=== PATIENT | male | born 1940 | race Caucasian/White ===

== ENCOUNTER → 2016-07-25 | Outpatient (CLI) | payer OTHER ==
[~2016-07-25] MED LIST: ASPIR 8181 MG PO; COREG3.125 MG PO; COREG6.25 MG PO; COUMADIN 5 MG TA5 M1 PO; ELIQUIS5 MG PO; ENOXAPARIN60 MG/0.1 SUBQ; FUROSEMIDE 40 M40 M1 PO; LIPITOR10 MG PO; LISINOPRIL2.5 MG PO; MIRALAX17 GM PO; PACERONE 200 M200 M1 PO; PLAVIX 75 MG TA75 M1 PO; PROTONIX40 M1 PO; VITAMIN B-12100 MCG PO; XARELTO20 MG PO
== END ==
LOC: SPEC 12:15
DX: I73.9 Peripheral vascular disease, unspecified (principal); M79.81 Nontraumatic hematoma of soft tissue

== ENCOUNTER → 2016-09-23 | Outpatient (CLI) | payer OTHER | END | disposition home or self-care (01) | LOC: SPEC 08:22 | DX: K55.9 Vascular disorder of intestine, unspecified (principal); Z90.49 Acquired absence of other specified parts of digestive tract; Z98.890 Other specified postprocedural states; I73.9 Peripheral vascular disease, unspecified; I50.9 Heart failure, unspecified; D18.09 Hemangioma of other sites ==

== ENCOUNTER 2016-11-12 02:49 | Inpatient (IN) | payer OTHER ==
[~2016-11-12] VITALS: Ht 170.2 cm; Wt 68.0 kg
--- NOTE | ~2016-11-12 | HC ---
[facility] [place] [address] CONSULTATION Name: ALLAN DURHAM Room #: 311-P ADM IN M.R.#: [id number] Admission: 11/12/16 Attend Phys: Ranjan Byrnes MD Discharge: Date of : 44 Report #: [id number] THIS REPORT FOR: //name// CC: Ranjan Byrnes DATE OF SERVICE: 11/12/2016 REASON FOR CONSULTATION: 1. Shortness of breath, question etiology. 2. Probable chronic obstructive pulmonary disease. 3. Probable acute on chronic congestive heart failure. 4. Abdominal pain with mesenteric artery stenting. 5. Anemia. 6. Debilitation. PLAN: DuoNeb aerosol therapy. Agree with diuresis. Await abdominal CT. May check CT chest the same time, echocardiogram pending. Discussed with the family at bedside. HISTORY OF PRESENT ILLNESS: A 76-year-old transferred for possible GI bleed and increasing shortness breath. The patient relates ever since he had the transfusion last week, he has had progressive shortness breath and difficulty walking. He also has had a recent mesenteric artery stent. He denies any hemoptysis or hematemesis. Positive cough. No fever, chills or sweats. PAST MEDICAL HISTORY: ALLERGIES: No known. MEDICATIONS: In the past included Protonix, atorvastatin, aspirin, lisinopril, Lasix, amiodarone, Coreg, warfarin, Plavix. SOCIAL HISTORY: Positive for tobacco, quit 6 months ago; positive ETOH; no drugs of abuse. REVIEW OF SYSTEMS: Positive for COPD and peripheral arterial disease, hypertension, CHF, positive for fatigue. No definite snoring or witnessed apnea. Positive shortness breath. No hemoptysis, hematemesis, hematuria. No dysuria. No recent TIA. PHYSICAL EXAMINATION: VITAL SIGNS: Temperature 98.4, pulse 70, respirations 20, BP 96/68. EYES: Negative icterus. NECK: Negative JVD. LUNGS: Showed a few crackles at bases, no wheeze or rhonchi. HEART: Regular. [facility] [address] [place] [address] CONSULTATION Name: HERMINIOALLAN LARISA Room #: 311-[facility] IN .R.#: [id number] Admission: 11/12/16 Attend Phys: Ranjan Byrnes MD Discharge: Date of : 42 Report #: [id number] ABDOMEN: Bowel sounds present, soft, nontender. EXTREMITIES: Showed no cyanosis or edema. NEUROLOGIC: He is alert and oriented. LABORATORY DATA: CT abdomen and pelvis showed right greater than left pleural effusion, SMA stent, atelectasis. Echo showed severe LV dysfunction, moderate to severe mitral regurg, pulmonary artery pressure of 50. We will follow closely with you. By: 1544 1851 Macy Gao MD /nt
--- NOTE | ~2016-11-12 | 2DMMODE ---
[facility] [address] [place] [address] 2 D/M-MODE ECHOCARDIOGRAM Name: HERMINIOALLAN PERES Room #: 311-P ADM IN M.R.#: [id number] Admission: 11/12/16 Attend Phys: Ranjan Byrnes MD Discharge: Date of : 44 Date of Service: 11/12/16 1342 Report #: [id number] THIS REPORT FOR: //name// APPROVED REPORT Study performed: 11/12/2016 10:00:25 EXAM: Comprehensive 2D, Doppler, and color-flow Echocardiogram Patient Location: Bedside Room #: 311 Status: on-call Other Information Study Quality: Adequate/low parasternal window Indications Congestive Heart Failure Dyspnea Hx: CHF, COPD, PVD 2D Dimensions RVDd: 39.79 mm LVEF(%): 24.86 (>50%) IVSd: 9.30 (7-11mm) LVOT Diam: 21.17 (18-24mm) LVDd: 59.70 mm PWd: 9.79 (7-11mm) LVDs: 52.73 (25-40mm) Aortic Root: 36.12 mm Trevino's LVEF: 24.86 % Volumes Left Atrial Volume (Systole) Single Plane 4CH: 81.96 mL Single Plane 2CH: 90.85 mL LA ESV Index: 54.00 mL/m2 Aortic Valve AoV Peak Nathaniel.: 1.07 m/s AO Peak Gr.: 4.54 mmHg LVOT Max P.05 mmHg LVOT Max V: 0.87 m/s AUDRA Vmax: 2.88 cm2 Mitral Valve MV Decel. Time: 121.22 ms MV E Max Nathaniel.: 1.12 m/s [facility] [address] [place] [address] 2 D/M-MODE ECHOCARDIOGRAM Name: ALLAN DURHAM Room #: 311-P [facility] IN [facility].#: [id number] Admission: 11/12/16 Attend Phys: Ranjan Byrnes MD Discharge: Date of : 44 Date of Service: 11/12/16 1342 Report #: [id number] Pulmonary Valve PV Peak Nathaniel.: 0.60 m/s PV Peak Gr.: 1.43 mmHg Tricuspid Valve TR Peak Nathaniel.: 3.14 m/s RAP Estimate: 10.00 mmHg TR Peak Gr.: 39.38 mmHg PA Pressure: 49.00 mmHg Left Ventricle Left ventricle is dilated. There is normal left ventricular wall thickness. Left ventricular systolic function is severely decreased. LVEF 25%. This study is not technically sufficient to allow evaluation of the LV diastolic function Right Ventricle The right ventricle is normal size. Right ventricle is hypokinetic. Atria Left atrium is severely dilated. Right atrium is moderately dilated. Aortic Valve aortic valve is mildly sclerotic. Trace aortic regurgitation. There is no aortic valvular stenosis. Mitral Valve Mitral valve leaflets are thickened. Moderately severe to severe mitral regurgitation No evidence of mitral valve stenosis. Tricuspid Valve The tricuspid valve is normal in structure. There is mild tricuspid regurgitation. The right atrial pressure is estimated at 10 mmHg. There is moderate pulmonary hypertension with an estimated PAP of 50mmHg. Pulmonic Valve Pulmonic valve is not well visualized. Trace pulmonic regurgitation. Great Vessels The aortic root is normal in size. Ascending aorta is not well visualized. IVC is dilated and collapses <50% with inspiration. Pericardium [facility] [address] [place] [address] 2 D/M-MODE ECHOCARDIOGRAM Name: ALLAN DURHAM Room #: 311-P [facility] IN .R.#: [id number] Admission: 11/12/16 Attend Phys: Ranjan Byrnes MD Discharge: Date of : 44 Date of Service: 11/12/16 1342 Report #: [id number] There is no pericardial effusion. Left and right pleural effusions noted. <Conclusion> Left ventricular systolic function is severely decreased. LVEF 25%. Both atria are dilated. Aortic valve is mildly sclerotic, trileaflet. No aortic valvular stenosis or insuffiency. Mitral valve leaflets are thickened. Moderately severe to severe mitral regurgitation Pulmonary artery pressure of 50mmHg There is no pericardial effusion. <ELECTRONICALLY SIGNED> By: Ralph Shultz MD, [facility] 11/12/161341 41 41 Ralph Shultz MD, FAC /INF
--- NOTE | ~2016-11-12 | HC ---
[facility] [place] [address] CONSULTATION Name: ALLAN DURHAM Room #: 311-P [facility] IN M.R.#: [id number] Admission: 11/12/16 Attend Phys: Xavier Nobles DO Discharge: 11/14/16 Date of : 42 Report #: [id number] THIS REPORT FOR: //name// CC: Ranjan Byrnes REASON FOR CONSULTATION: Shortness of breath. HISTORY OF ILLNESS: The patient is a 76-year-old gentleman with a history of diffuse vascular disease, had prior mesenteric stenting. His history includes a cardiomyopathy. He reports being life-flighted 3 times to [place] for congestive heart failure. He has been told of having a very weakened heart muscle. He also reports that as recently as September of this year, he underwent Lexiscan stress study and echocardiogram, both of which were favorable. Those results have been requested. He has been maintained on warfarin, Plavix and aspirin ever since a repeat mesenteric stenting procedure done in 06/2016. He has had tolerated over recurrent bleeding and has received 2-3 blood since as recently as Monday of this past week. Following this transfusion he did generally feel better, although he has had persistent exertional breathlessness and orthopnea. Two weeks ago, had an episode of bright red blood per rectum. He denies chest heaviness or pressure. No history of near syncope or syncope. ALLERGIES: No known drug allergies. MEDICATIONS: Include warfarin 2.5 mg every day except Monday, Monday, Monday, Plavix 75 mg daily, Protonix 40 mg daily, aspirin 81 mg daily, amiodarone 200 mg daily, carvedilol 3.125 mg twice daily, Lasix 40 mg daily, had been on 40 mg twice daily, dose was recentlychanged, atorvastatin 10 mg daily, lisinopril 5 mg daily. PAST MEDICAL HISTORY: Medical records have been reviewed and include a history of appendectomy, left iliac artery stenosis, right iliac artery occlusion with bypass, cardiomyopathy with congestive heart failure, celiac and mesenteric artery stenting. SOCIAL HISTORY: He is a former, significant smoker. FAMILY HISTORY: Unremarkable for premature coronary disease. REVIEW OF SYSTEMS: All systems negative except as that noted above. PHYSICAL EXAMINATION: GENERAL: Reveals a pleasant gentleman in no distress. VITAL SIGNS: Blood pressure is 100/68, heart rate is 70 and regular. He is afebrile. HEENT: There are neither xanthelasma, subcutaneous xanthomata, oral mucosal or digital cyanosis or kyphoscoliosis present. CHEST: Clear to auscultation and percussion. [facility] [address] [place] [address] CONSULTATION Name: ALLAN DURHAM Room #: 311-P [facility] IN M.R.#: [id number] Admission: 11/12/16 Attend Phys: Xavier Nobles DO Discharge: 11/14/16 Date of : 42 Report #: [id number] CARDIOVASCULAR: Regular rate and rhythm with normal S1, S2. Jugular venous pressure is elevated. ABDOMEN: Soft and nontender. EXTREMITIES: Without cyanosis, clubbing or edema. Radial pulses are 2+. NEUROLOGIC: He is alert with a nonfocal exam. LABORATORY DATA: EKG sinus rhythm with nonspecific ST and T-wave abnormality. Sodium is 134, potassium 4.2, creatinine 0.9. ProBNP of 5311. Troponin 0.12. INR of 2.1. White cell count 5.9, hemoglobin 9.9, hematocrit 30, platelet count 413. Chest x-ray demonstrates mild interstitial prominence. IMPRESSION: 1. Recurrent anemia and GI blood loss. 2. Zjgmp-cq-jckdzjm systolic heart failure. 3. Cardiomyopathy. 4. Prior mesenteric stenting. 5. Chronic obstructive pulmonary disease. RECOMMENDATIONS: 1. CTA of the abdomen and pelvis. 2. IV Lasix; continued use of carvedilol and lisinopril. 3. Records from [place] have been requested with regards to echocardiogram, very recent echocardiogram and Lexiscan stress study. 4. I would strongly consider migrating him off of "triple" anticoagulant therapy. If he has had atrial fibrillation in the past, which is suspicious given his use of amiodarone, I would recommend use of warfarin alone. Further thoughts will be forthcoming based on this evaluation. Thank you for asking me to participate in his care. <ELECTRONICALLY SIGNED> By: Ralph Shultz MD, [facility] 11/15/16 1635 1322 1512 Ralph Shultz MD, FACC /nt
--- NOTE | ~2016-11-12 | HC ---
[facility] [place] [address] CONSULTATION Name: ALLAN DURHAM Room #: 311-P [facility] IN M.R.#: [id number] Admission: 11/12/16 Attend Phys: Xavier Nobles DO Discharge: 11/14/16 Date of : 42 Report #: [id number] THIS REPORT FOR: //name// CC: Xavier VILCHIS DATE OF SERVICE: 11/14/2016 CARDIOLOGY CONSULTATION REASON FOR CONSULTATION: Evaluation for ICD implantation. HISTORY OF PRESENT ILLNESS: The patient is a 76-year-old with a history of a cardiomyopathy, who has been on optimal medical therapy for over 3 months who on this hospitalization had an echo showing an EF of 20%-25%. He lives between [facility] and [place] and apparently has been life threaded three times to the hospital in [place] for a congestive heart failure. He had an echocardiogram on 09/22/2016 at [place], which showed an EF of 40%. Apparently, he had a nuclear stress test there as well per the sister. Sister reports that she was told that the stress test came out okay. Speaking with the patient, he denies any chest pain or chest tightness. They report that there was an attempt to do a heart catheterization in the past, but this was unable to be performed due to his severe peripheral vascular disease. He does have exertional dyspnea, which occurs with hbzt-oy-tzhjxxga activities. He reports climbing stairs can result in shortness of breath. He denies any PND or orthopnea. He denies presyncope or syncope. The patient also has severe peripheral vascular disease and has had mesenteric stents placed, most recently in June of 2016 and is on warfarin, Plavix and aspirin. The patient has been having some GI bleeding which is the main reason he was here in the hospital. He did receive blood transfusions. PAST MEDICAL HISTORY: Includes; 1. Cardiomyopathy, ejection fraction of 20%-25%. 2. Peripheral vascular disease with left iliac artery stenosis, right iliac artery occlusion with bypass, and celiac and mesenteric artery stenting. SOCIAL HISTORY: He quit smoking in the past. FAMILY HISTORY: Noncontributory. REVIEW OF SYSTEMS: A 12-point review of systems was performed and was negative other than what I mentioned above. PHYSICAL EXAMINATION: VITAL SIGNS: Temperature is 37.0, pulse 59, respirations 20, blood pressure 111/51, and sats 96%. [facility] [address] [place] [address] CONSULTATION Name: ALLAN DURHAM Room #: 311-P [facility] IN M.R.#: [id number] Admission: 11/12/16 Attend Phys: Xavier Nobles DO Discharge: 11/14/16 Date of : 42 Report #: [id number] LABORATORY DATA: Coags: INR is 1.5. Chemistry: Sodium 134, potassium 3.4, chloride 97, BUN 28, and creatinine 1.1. His 12-lead EKG here demonstrates sinus rhythm with intraventricular conduction delay, but no left bundle branch block. I personally visualized his chest x-ray, which shows some mild cephalization and then prominent cardiac silhouette. He had a CT of his belly showing patency of the SMA stent. I reviewed the results of his echocardiogram here, which shows an EF of 25%. The left atrium is severely dilated. The right atrium is moderately dilated. There is moderately fqipuu-tx-pttcqd mitral regurgitation. PA pressures are 50 mL. In summary, the patient is a 76-year-old with history of a presumed nonischemic cardiomyopathy, EF of 20%-25% with a recent nuclear stress test that showed no active ischemia. He is recovering from recent GI bleeding and there are plans for him to undergo a peripheral angiogram this coming . The patient has been on beta sukhdeep and DANIEL inhibitor for more than 3 months and despite this, his ejection fraction has not improved. His [place] [employer] functional class is 2-3. Based on these findings, the patient meets criteria for ICD implantation for primary prevention of sudden cardiac . We discussed the details of the procedure including the risks which include but not limited to bleeding, infection, vascular damage, cardiac perforation, and pneumothorax. The patient reports that he is willing to proceed. He would like to wait until he is improved from his recent hospitalization. We will contact him to schedule this procedure electively. 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 <ELECTRONICALLY SIGNED> By: Cedrick Somers MD 11/15/16 0835 1440 2308 Cedrick Somers MD /nt
--- NOTE | ~2016-11-12 | HC ---
[facility] [place] [address] CONSULTATION Name: ALLAN DURHAM Room #: 311-P ADM IN M.R.#: [id number] Admission: 11/12/16 Attend Phys: Ranjan Byrnes MD Discharge: Date of : 42 Report #: [id number] THIS REPORT FOR: //name// CC: Ranjan Byrnes DATE OF SERVICE: 11/12/2016 REASON FOR CONSULTATION: Positive fecal occult blood test. CONSULTING PHYSICIAN: MARYJO Dixon. HISTORY OF PRESENT ILLNESS: This is a 76-year-old male who was transferred from [facility] for complaints of increasing shortness of breath. 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 He states he had a stent placed at that time. He has known history of CHF and appears to be in acute heart failure at this time. From GI standpoint, he has no signs of melena or hematochezia. His fecal occult blood test was positive for blood. Of note, hemoglobin is 9.9. On further questioning, he and his report that he had an EGD on 07/14/[address] Easton in [place], [place] that was normal. Colonoscopy on 05/07/2016 by him was also normal. REVIEW OF SYSTEMS: As noted in HPI and positive for shortness of breath and dyspnea on exertion, otherwise 10-point review of systems negative. PAST MEDICAL AND SURGICAL HISTORY: 1. COPD, everyday smoker. 2. Peripheral arterial disease with bypass surgery on right lower extremity. 3. Hypertension. 4. Appendectomy. 5. Hernia repair. 6. CHF. ALLERGIES AND MEDICATIONS: Reviewed and noted. SOCIAL HISTORY: He smokes about a pack a day and drinks for 60 years. Drinks average of 6 beers every day. Denies any illegal drug use. FAMILY HISTORY: There is no family member with colorectal cancer or GI malignancy. PHYSICAL EXAMINATION: GENERAL: Alert, oriented to time, place and person, cooperative, appears in moderate distress with shortness of breath. [facility] [address] [place] [address] CONSULTATION Name: ALLAN DURHAM LARISA Room #: 311-P [facility] IN M.R.#: [id number] Admission: 11/12/16 Attend Phys: Ranjan Byrnes MD Discharge: Date of : 42 Report #: [id number] VITAL SIGNS: Hemodynamically stable, afebrile. He is satting 95% on 3 liters nasal cannula. HEAD: Normocephalic, atraumatic head. EYES: Pupils equal, round, reactive to light and accommodation. Extraocular movements intact. No pallor, no icterus. NECK: Supple, midline trachea, thyroid nonpalpable. CARDIOVASCULAR: Regular rate and rhythm. No murmurs. RESPIRATORY: Coarse breath sounds bilaterally. ABDOMEN: Soft, nontender, nondistended. Bowel sounds present. EXTREMITIES: No cyanosis, clubbing, edema. SKIN: Warm and dry. No rashes. NEUROLOGIC: Cranial nerves were grossly intact. No focal deficits. LABORATORY DATA: White count 5.9, hemoglobin 9.9, platelets 413, BUN 11, creatinine 0.9. INR 2.1. Normal liver function test. BNP 5311. DIAGNOSTIC IMPRESSION AND PLAN: 1. Anemia. Appears to be normocytic, normochromic anemia. This could be from underlying chronic medical condition, especially his congestive heart failure. He has had an upper endoscopy and colonoscopy in 06/2015 and 04/2014 respectively. These were normal and done in [place], [place]. I do not have those records, but the patient and corroborate those results. 2. Anticoagulation. He is on anticoagulation. INR is 2.1. 3. Acute heart failure. BNP is 5311 and he appears to be in congestive heart failure exacerbation. This is being managed by the cardiology team. RECOMMENDATIONS: 1. Await CT scan results. 2. He has had endoscopic evaluation in the last 2 years in the form of EGD and colonoscopy as noted above. I favor conservative management and treatment of his acute heart failure since endoscopic studies are low yield as they had been performed recently and there are no active signs of GI bleeding. Thank you for allowing me to participate in the care of the patient. <ELECTRONICALLY SIGNED> By: Eids Liu MD 11/13/16 1020 1359 1553 Edis Liu MD /nt
--- NOTE | ~2016-11-12 | EKG ---
[address] [place] [address] ELECTROCARDIOGRAM REPORT Name: ALLAN DURHAM Room #: 311-P ADM IN M.R.#: [id number] Admission: 11/12/16 Attend Phys: Ranjan Byrnes MD Discharge: Date of : 42 Report #: [id number] THIS REPORT FOR: //name// [facility] Test Date: 2016-11-12 Test Time: 05:18:13 Pat Name: ALLAN DURHAM Department: Room: 311 P Gender: M Enterprise Software Developer: juan francisco : 1940 Requested By: Jacqui Mccray Order Number: [id number] MD: Ralph Shultz Measurements Intervals [place] Rate: 72 P: 66 WA: 157 QRS: 18 QRSD: 113 T: 208 QT: 479 QTc: 525 Interpretive Statements Sinus rhythm Probable left atrial enlargement Borderline intraventricular conduction delay Low voltage, extremity leads Nonspecific repol abnormality, diffuse leads Prolonged QT interval Compared to ECG 06/27/2016 17:52:20 No significant change was found Electronically Signed On 11-13-2016 10:51:36 CDT by Ralph Shultz [email or web address] <ELECTRONICALLY SIGNED> By: Ralph Shultz MD, [facility] 11/13/16 1051 0518 0518 Ralph Shultz MD, [facility] /EPI
[2016-11-12 04:05] VITALS: BP 142/76
[2016-11-12] MEDS ORDERED: COUMADIN 2.5MG2.5 M1 PO (05:37)
[2016-11-12 06:17] LABS: HEMATOCRIT 30.6 % (42.0-52.0); HEMOGLOBIN 9.9 gm/dL (14.0-18.0); INR 2.1; MCH 26.3 pg (26.0-34.0); MCHC 32.3 g/dL (28.0-37.0); MCV 81.2 fL (80.0-100.0); PROTIME 21.6 Seconds (9.3-11.4); RBC 3.76 mil/uL (4.50-6.00); RDW 19.7 % (10.5-14.5); WBC 5.9 thou/uL (4.0-11.0)
[2016-11-12 06:19] LABS: CALCIUM 8.6 mg/dL (8.5-10.1); CREATININE 0.9 mg/dL (0.7-1.3); POTASSIUM 4.2 mmol/L (3.5-5.1)
[2016-11-12 06:30] LABS: ALBUMIN 3.5 g/dL (3.4-5.0); TOTAL BILIRUBIN 0.6 mg/dL (<0.1-1.0); TOTAL PROTEIN 7.3 g/dL (6.4-8.2); TROPONIN-I 0.12 ng/mL (<0.04-0.07)
[2016-11-12 07:52] VITALS: BP 96/68
[2016-11-12 14:35] LABS: % SATURATION 6 % (20-39); IRON 23 ug/dL (65-175); TIBC 399 ug/dL (250-450); UIBC 376 ug/dL
[2016-11-12 16:54] VITALS: BP 115/53
[2016-11-12 19:06] VITALS: BP 106/55
[2016-11-12 23:31] VITALS: BP 110/57
[2016-11-13 04:19] VITALS: BP 109/63
[2016-11-13 07:30] VITALS: BP 116/68
[2016-11-13 07:36] LABS: HEMATOCRIT 25.4 % (42.0-52.0); HEMOGLOBIN 8.4 gm/dL (14.0-18.0); MCH 26.4 pg (26.0-34.0); PLATELET COUNT 354 thou/uL (150-400); RBC 3.17 mil/uL (4.50-6.00); RDW 19.4 % (10.5-14.5)
[2016-11-13 07:41] LABS: MANUAL DIFF YES
[2016-11-13 09:50] LABS: ABSOLUTE NEUTROPHILS 8.1 thou/uL (1.4-8.2); CALCIUM 8.4 mg/dL (8.5-10.1); POLYCHROMASIA SLIGHT; POTASSIUM 4.2 mmol/L (3.5-5.1); TOTAL CELL COUNT 100
[2016-11-13 09:52] LABS: ANISOCYTOSIS 2+; HYPOCHROMASIA 2+; OVALOCYTES 1+
[2016-11-13 15:40] VITALS: BP 108/61
[2016-11-13 19:29] VITALS: BP 111/51
[2016-11-14 03:49] VITALS: BP 80/50
[2016-11-14 03:51] LABS: HEMATOCRIT 26.5 % (42.0-52.0); HEMOGLOBIN 8.8 gm/dL (14.0-18.0); MCH 26.4 pg (26.0-34.0); MCHC 33.1 g/dL (28.0-37.0); MCV 79.9 fL (80.0-100.0); RBC 3.32 mil/uL (4.50-6.00); RDW 19.6 % (10.5-14.5); WBC 8.9 thou/uL (4.0-11.0)
[2016-11-14 03:57] LABS: CALCIUM 8.3 mg/dL (8.5-10.1); CREATININE 1.1 mg/dL (0.7-1.3); POTASSIUM 3.4 mmol/L (3.5-5.1); TROPONIN-I 0.13 ng/mL (<0.04-0.07)
[2016-11-14 08:00] VITALS: BP 70/46
[2016-11-14 08:43] LABS: INR 1.5; PROTIME 14.7 Seconds (9.3-11.4)
[2016-11-14 15:13] VITALS: BP 70/46
[2016-11-14 15:20] VITALS: BP 70/46
== END 2016-11-14 15:40 | disposition home or self-care (01) | DRG 377 ==
LOC: 3W 02:49 → 3N 04:17
PROVIDERS: Internal Medicine; Nurse Practitioner; Nurse Practitioner Adult Health
DX: K92.2 Gastrointestinal hemorrhage, unspecified (principal); J18.9 Pneumonia, unspecified organism; I50.43 Acute on chronic combined systolic (congestive) and diastolic (congestive) heart failure; J44.1 Chronic obstructive pulmonary disease with (acute) exacerbation; I42.9 Cardiomyopathy, unspecified; I73.9 Peripheral vascular disease, unspecified; F17.210 Nicotine dependence, cigarettes, uncomplicated; I11.0 Hypertensive heart disease with heart failure; H91.90 Unspecified hearing loss, unspecified ear; D50.9 Iron deficiency anemia, unspecified; I95.9 Hypotension, unspecified; Z79.01 Long term (current) use of anticoagulants; Z90.49 Acquired absence of other specified parts of digestive tract
CPT/HCPCS: 10096

== ENCOUNTER → 2016-11-17 | Outpatient (CLI) | payer OTHER ==
[~2016-11-17] MED LIST changes: +COUMADIN 2.5MG2.5 M1 PO
== END ==
LOC: CAT 09:16
DX: I51.7 Cardiomegaly (principal); K57.90 Diverticulosis of intestine, part unspecified, without perforation or abscess without bleeding; I73.9 Peripheral vascular disease, unspecified; D18.00 Hemangioma unspecified site

== ENCOUNTER 2016-12-01 06:31 | Observation (INO) | payer OTHER ==
[~2016-12-01] VITALS: Ht 170.2 cm; Wt 54.7 kg
--- NOTE | ~2016-12-01 | CATHLAB ---
[facility] [address] [place] [address] INVASIVE PROCEDURE REPORT Name: HERMINIOALLAN JOSE RAMONCLAUDINE Room #: 204-P [facility] IN .R.#: [id number] Admission: 12/01/16 Attend Phys: Cedrick Somers Discharge: 12/02/16 Date of : 44 Date of Service: 12/05/16 1135 Report #: [id number] THIS REPORT FOR: //name// APPROVED REPORT Patient Location: Room #: Stress Nurse: ICD IMPLANTATION REPORT: History: The patient is a 76-year-old male with a history of cardiomyopathy here for ICD implantation for primary prevention of sudden cardiac . He also has symptomatic bradycardia which has prevented titration of medications and the patient also requires future MRIs given his peripheral vascular disease. Consent: The patient underwent informed consent were we discussed the details of the procedure including the risks which include but are not limited to bleeding infection vascular damage cardiac perforation pneumothorax. She understood these risks and is willing to proceed Anesthesia: Patient underwent Mac anesthesia performed by the anesthesiology service. Procedure: The patient was brought to the EP laboratory in a fasting nonsedated state and prepped and draped in a sterile fashion. The patient underwent a venogram showing patency of the left axillary vein. She received IV antibiotics prior to initiation of the procedure. Next, I injected 20 mL of lidocaine below the level of the left clavicle. Next an incision was made and a pocket was created over the prepectoral fascia and access was obtained once to the left axillary vein using the extrathoracic approach with this sheath positioned using the modified Salinger technique. Next under fluoroscopy a single-coil lead was positioned into the right ventricular apex. Next an atrial lead was positioned in the RA appendage. There was adequate pacing and sensing thresholds. The leads were sutured to the prepectoral fascia and the device was connected and the pocket was irrigated with vancomycin. The pocket was closed in 3 layers surgical glue placed and the outer skin layer. The patient awoke neurologically human V. tach no complications and no significant bleeding. [facility] [address] [place] [address] INVASIVE PROCEDURE REPORT Name: ALLAN DURHAM Room #: 204-P [facility] IN .R.#: [id number] Admission: 12/01/16 Attend Phys: Cedrick Somers Discharge: 12/02/16 Date of : 44 Date of Service: 12/05/16 1135 Report #: [id number] The implanted defibrillator was a Biotronik model #532059 serial #[id number]. The atrial lead was a Biotronik model #[id number] serial #[id number]. The RV lead was a Biotronik model #37 12/31/68 serial #[id number] the atrial lead demonstrated a P wave of 4 mV the pacing impedance of 520 ohms and a pacing threshold of 0.7 V at 0.4 ms. The RV lead demonstrated an R-wave of 20.9 with a pacing impedance of 635 ohms and a pacing threshold of 0.4 V at 0.4 ms. The device is programmed to the DDDR 60 to 130 mode. The VT zone was set at 180-220 with ATP while charging followed by max output shocks. VF sound was programmed at greater than 220 bpm with ATP while charging followed by max output shocks. Conclusion Conclusions: 1. Successful dual chamber ICD implantation 2. Satisfactory atrial and right ventricular pacing and sensing thresholds. <ELECTRONICALLY SIGNED> By: Cedrick Somers MD 12/05/16 1135 1135 1135 Cedrick Somers MD /INF
--- NOTE | ~2016-12-01 | D ---
[facility] [place] [address] DISCHARGE SUMMARY Name: ALLAN DURHAM Room #: 204-P [facility] Regina Appiah#: [id number] Admission: 12/01/16 Attend Phys: Cedrick Somers MD Discharge: 12/02/16 Date of : 44 Report #: [id number] THIS REPORT FOR: //name// CC: Cedrick PERDOMO DATE OF SERVICE: 12/02/2016 DISCHARGE DIAGNOSIS: Nonischemic cardiomyopathy. PROCEDURES PERFORMED: Dual chamber ICD implantation with a Biotronik device. HISTORY: The patient is a 76-year-old with history of nonischemic cardiomyopathy, who has been on optimal medical therapy, who is here for ICD implantation for primary prevention of sudden cardiac . He also had problems with symptomatic bradycardia which have limited ability to up titrate his medications; therefore, I implanted a dual chamber ICD. The surgical implant was uneventful and was without issues. HOSPITAL COURSE: The patient was monitored overnight. Post-procedure, he did have some hypotension with systolics in the 70s-80s. A limited echo showed no effusion. Chest x-ray showed no pneumothorax. I did give him some IV fluids 500 mL total. The following day, his blood pressure was much improved. His device was interrogated and found to be functioning normally. A chest x-ray showed that his device was in stable position and no pneumothorax. As such, he was deemed stable for discharge home with discharge instructions reviewed. He was resumed on the same home medications and was instructed to resume his Coumadin tomorrow. He has an appointment to follow up with us in 7-10 days for site check. <ELECTRONICALLY SIGNED> By: Cedrick Somers MD 12/05/16 1549 [id number] Cedrick Somers MD /nt
--- NOTE | ~2016-12-01 | 2DMMODE ---
[address] [address] D/M-MODE ECHOCARDIOGRAM Name: ALLAN DURHAM Room #: 204-P ADM IN M.R.#: [id number] Admission: 12/01/16 Attend Phys: Cedrick Somers Discharge: Date of : 44 Date of Service: 12/01/16 1616 Report #: [id number] THIS REPORT FOR: //name// APPROVED REPORT Study performed: 12/01/2016 15:30:42 EXAM: Limited 2D Echocardiogram Patient Location: Bedside Room #: 204 Status: JOSE ANTONIO BSA: 1.63 HR: 63 bpm BP: 70/46 mmHg Indications Limited echo to rule out pericardial effusion status post ICD implant. Hypotension. Left Ventricle Left ventricle is dilated. Left ventricular systolic function is severely decreased. Right Ventricle Right ventricle is hypokinetic. Atria Left atrium is dilated. Right atrium is dilated. Device lead is present in the right atrium. Great Vessels IVC is normal in size and collapses <50% with inspiration. Pericardium There is no pericardial effusion. <Conclusion> Left ventricle is dilated. Left ventricular systolic function is severely decreased. Right ventricle is hypokinetic. Left atrium is dilated. Right atrium is dilated. [address] [address] D/M-MODE ECHOCARDIOGRAM Name: HERMINIOALLAN JOSE RAMONCLAUDINE Room #: 204-P ADM IN M.R.#: [id number] Admission: 12/01/16 Attend Phys: Cedrick Somers Discharge: Date of : 44 Date of Service: 12/01/161615 Report #: [id number] Device lead is present in the right atrium. There is no pericardial effusion. <ELECTRONICALLY SIGNED> By: Donald Garcia MD 12/01/161615 15 15 Donald Garcia MD /INF
[2016-12-01 07:10] VITALS: BP 114/57
[2016-12-01 07:22] LABS: HEMOGLOBIN 11.2 gm/dL (14.0-18.0); MCH 26.7 pg (26.0-34.0); MCHC 32.1 g/dL (28.0-37.0); MCV 83.2 fL (80.0-100.0); PLATELET COUNT 337 thou/uL (150-400); RDW 24.7 % (10.5-14.5); WBC 4.6 thou/uL (4.0-11.0)
[2016-12-01 07:24] LABS: MANUAL DIFF YES
[2016-12-01 07:34] LABS: CALCIUM 8.7 mg/dL (8.5-10.1); CREATININE 1.1 mg/dL (0.7-1.3); POTASSIUM 4.3 mmol/L (3.5-5.1)
[2016-12-01 07:35] LABS: APTT 31.1 Seconds (24.5-32.8); INR 1.2
[2016-12-01 07:40] LABS: ALBUMIN 3.5 g/dL (3.4-5.0); TOTAL BILIRUBIN 0.4 mg/dL (<0.1-1.0); TOTAL PROTEIN 6.5 g/dL (6.4-8.2)
[2016-12-01 07:56] LABS: ANISOCYTOSIS 2+; PLATELET ESTIMATE NORMAL; TOTAL CELL COUNT 100
[2016-12-01 11:47] VITALS: BP 70/46
[2016-12-01 16:02] VITALS: BP 87/63
[2016-12-01 19:05] VITALS: BP 74/50
[2016-12-01 23:32] VITALS: BP 106/61
[2016-12-02 03:51] VITALS: BP 110/65
[2016-12-02 07:08] VITALS: BP 122/67
[2016-12-02] MEDS ORDERED: COUMADIN 2.5MG2.5 M1 PO (10:40)
[2016-12-02 12:23] VITALS: BP 129/66
[2016-12-02 13:23] VITALS: BP 129/66
== END 2016-12-02 13:45 | disposition home or self-care (01) ==
LOC: CATH 06:31 → 2N 11:20
PROVIDERS: Internal Medicine Cardiovascular Disease
DX: I25.5 Ischemic cardiomyopathy (principal); I11.0 Hypertensive heart disease with heart failure; I25.10 Atherosclerotic heart disease of native coronary artery without angina pectoris; I48.0 Paroxysmal atrial fibrillation; R00.1 Bradycardia, unspecified; J43.9 Emphysema, unspecified; E78.5 Hyperlipidemia, unspecified; I73.9 Peripheral vascular disease, unspecified; Z72.89 Other problems related to lifestyle; Z87.891 Personal history of nicotine dependence